=== PATIENT | male | born 1995 | race Caucasian/White ===

== ENCOUNTER 2017-03-23 15:17 | Emergency (ER) | payer OTHER ==
[2017-03-23 15:30] VITALS: BP 104/65; PULSE 101; TEMP 98.9; BMI 21.7
[2017-03-23] MEDS ORDERED: IBUPROFEN 600 MG TABLET (FP) PO STA (15:45)
[2017-03-23] MEDS ORDERED: IBUPROFEN 600 MG TABLET (FP) PO ONE (15:55)
--- NOTE | 2017-03-23 16:18 | PDOC ---
History of Present Illness - General Chief Complaint: Sore Throat Stated Complaint: SORETHROAT Time Seen by Provider: 03/23/17 15:43 History Source: Patient Exam Limitations: No Limitations - History of Present Illness Initial Comments: 03/23/17 16:15 21 yr male with sore throat for 3 days no fever or chills. Past History - Past Medical History Allergies/Adverse Reactions: Allergies Allergy/AdvReac Type Severity Reaction Status Date / Time No Known Allergies Allergy Verified 03/23/17 15:27 Home Medications: Ambulatory Orders No Home Medications 0 dose .ROUTE UTDICT 10/27/12 - Immunization History Immunization Up to Date: Yes - Suicide/Smoking/Psychosocial Hx Smoking Status: No Smoking History: Never smoked Number of Cigarettes Smoked Daily: 0 Review of Systems - Review of Systems Able to Perform ROS?: Yes Is the patient limited Lithuanian proficient: No Constitutional: No: Symptoms Reported HEENTM: Yes: See HPI *Physical Exam - Vital Signs Last Vital Signs Temp Pulse Resp BP Pulse Ox 98.9 F 101 H 18 104/65 99 03/23/17 15:27 03/23/17 15:27 03/23/17 15:27 03/23/17 15:27 03/23/17 15:27 - Physical Exam General Appearance: Yes: Nourished, Appropriately Dressed HEENT: positive: EOMI, ЕКАТЕИРНА, Tonsillar Erythema Neck: positive: Supple. negative: Lymphadenopathy (R), Lymphadenopathy (L) Respiratory/Chest: positive: Lungs Clear, Normal Breath Sounds Cardiovascular: positive: Regular Rhythm, Regular Rate Gastrointestinal/Abdominal: positive: Normal Bowel Sounds, Soft Musculoskeletal: positive: Normal Inspection Extremity: positive: Normal Capillary Refill, Normal Inspection, Normal Range of Motion Integumentary: positive: Normal Color, Dry, Warm Neurologic: positive: chief scientific officer II-XII NML intact, Fully Oriented, Alert, Normal Mood/ Affect, Motor Strength 10/25 ED Treatment Course - ADDITIONAL ORDERS Additional order review: 03/23/17 15:45 Group A Strep Rapid Antigen - Final Throat - Medications Given in the ED: ED Medications Discontinued Medications Generic Name Dose Route Start Last Admin Trade Name Freq PRN Reason Stop Dose Admin Ibuprofen 600 mg 03/23/17 15:45 03/23/17 15:56 Motrin - PO 03/23/17 15:46 600 mg ONCE STA Administration Medical Decision Making - Medical Decision Making 03/23/17 16:16 cc: sore throat non toxic stable vitals will check for strep *DC/Admit/Observation/Transfer Diagnosis at time of Disposition: Pharyngitis Qualifiers: Pharyngitis/tonsillitis etiology: unspecified etiology Qualified Code(s): J02.9 - Acute pharyngitis, unspecified; J02.9 - Acute pharyngitis, unspecified - Discharge Dispostion Disposition: HOME Condition at time of disposition: Good - Referrals Referrals: Piotr Lindo [Primary Care Provider] - Angel Lopez MD [Staff Physician] - - Patient Instructions Additional Instructions: garlge with warm salt water 4-5 times a day take motrin 600mg every 6hrs for pain(over the counter advil, ibuprofen or motrin) follow with the ENT doctor this week if not improving
== END 2017-03-23 16:21 | disposition home or self-care (01) ==
LOC: JER 15:17 → JERFT 15:17
DX: J02.9 Acute pharyngitis, unspecified (principal)
CPT/HCPCS: 87070; 87430; 99281-25

== ENCOUNTER 2017-08-07 03:06 | Emergency (ER) | payer SELFPAY ==
[2017-08-07 03:57] VITALS: BMI 21.7
--- NOTE | 2017-08-07 04:12 | PDOC ---
History of Present Illness - General History Source: Patient Exam Limitations: No Limitations - History of Present Illness Initial Comments: 08/07/17 04:15 The patient is a 22 year old male, with no significant past medical history, who presents to the emergency department with fever (Tmax 102F), generalized weakness and body aches for about 2 days. The patient states his friend has the flu. The patient denies chest pain, shortness of breath, headache and dizziness. The patient denies chills, nausea, vomit, diarrhea and constipation. The patient denies dysuria, frequency, urgency and hematuria. Allergies: NKDA <Reshma Thakur - Last Filed: 08/07/17 04:15> - General History Source: Patient <Jared Amador - Last Filed: 08/07/17 06:02> - General Chief Complaint: Cold Symptoms Stated Complaint: SICK/FEVER/WEAK Time Seen by Provider: 08/07/17 04:09 Past History <Reshma Thakur - Last Filed: 08/07/17 04:15> - Immunization History Immunization Up to Date: Yes - Suicide/Smoking/Psychosocial Hx Smoking Status: No Smoking History: Never smoked Have you smoked in the past 12 months: No Number of Cigarettes Smoked Daily: 0 Information on smoking cessation initiated: No Hx Alcohol Use: No Drug/Substance Use Hx: No <Jared Amador - Last Filed: 08/07/17 06:02> - Past Medical History Allergies/Adverse Reactions: Allergies Allergy/AdvReac Type Severity Reaction Status Date / Time No Known Allergies Allergy Verified 08/07/17 03:53 Home Medications: Ambulatory Orders Ibuprofen [Motrin] 600 mg PO TID #30 tablet 08/07/17 Oseltamivir Phosphate [Tamiflu -] 75 mg PO BID #10 capsule 08/07/17 Review of Systems - Review of Systems Able to Perform ROS?: Yes Comments:: 08/07/17 04:15 CONSTITUTIONAL: (+) fever, generalized weakness, malaise, Absent:chills, diaphoresis, loss of appetite HEENT: Absent: rhinorrhea, nasal congestion, throat pain, throat swelling, difficulty swallowing, mouth swelling, ear pain, eye pain, visual Changes CARDIOVASCULAR: Absent: chest pain, syncope, palpitations, irregular heart rate, lightheadedness , peripheral edema RESPIRATORY: Absent: cough, shortness of breath, dyspnea with exertion, orthopnea, wheezing, stridor, hemoptysis GASTROINTESTINAL: Absent: abdominal pain, abdominal distension, nausea, vomiting, diarrhea, constipation, melena, hematochezia GENITOURINARY: Absent: dysuria, frequency, urgency, hesitancy, hematuria, flank pain, genital pain MUSCULOSKELETAL: (+) diffuse body aches. Absent: arthralgia, joint swelling SKIN: Absent: rash, itching, pallor HEMATOLOGIC/IMMUNOLOGIC: Absent: easy bleeding, easy bruising, lymphadenopathy, frequent infections ENDOCRINE: Absent: unexplained weight gain, unexplained weight loss, heat intolerance, cold intolerance NEUROLOGIC: Absent: headache, focal weakness or paresthesias, dizziness, unsteady gait, seizure, mental status changes, bladder or bowel incontinence PSYCHIATRIC: Absent: anxiety, depression, suicidal or homicidal ideation, hallucinations. <Reshma Thakur - Last Filed: 08/07/17 04:15> *Physical Exam - Vital Signs Last Vital Signs Temp Pulse Resp BP Pulse Ox 102.7 F H 130 H 14 107/57 97 08/07/17 03:54 08/07/17 03:54 08/07/17 03:54 08/07/17 03:54 08/07/17 03:54 - Physical Exam Comments: 08/07/17 04:16 GENERAL: (+) in moderate distress. Well developed, well nourished. Awake and alert. HEENT: Normocephalic, atraumatic. PERRLA, EOMI. No conjunctival pallor. Sclera are non- icteric. Moist mucous membranes. Oropharynx is clear. NECK: Supple. Full ROM. No JVD. Carotid pulses 2+ and symmetric, without bruits. No thyromegaly. No lymphadenopathy. CARDIOVASCULAR: Regular rate and rhythm. No murmurs, rubs, or gallops. Distal pulses are 2+ and symmetric. PULMONARY: No evidence of respiratory distress. Lungs clear to auscultation bilaterally. No wheezing, rales or rhonchi. ABDOMINAL: Soft. Non-tender. Non-distended. No rebound or guarding. No organomegaly. Normoactive bowel sounds. MUSCULOSKELETAL Normal range of motion at all joints. No bony deformities or tenderness. No CVA tenderness. EXTREMITIES: No cyanosis. No clubbing. No edema. No calf tenderness. SKIN: Warm and dry. Normal capillary refill. No rashes. No jaundice. NEUROLOGICAL: Alert, awake, appropriate. Cranial nerves 2-12 intact. Normoreflexic in the upper and lower extremities. Normal speech. Toes are down-going bilaterally. Gait is normal without ataxia. PSYCHIATRIC: Cooperative. Good eye contact. Appropriate mood and affect. <Reshma Thakur - Last Filed: 08/07/17 04:15> - Vital Signs Last Vital Signs Temp Pulse Resp BP Pulse Ox 102.7 F H 130 H 14 107/57 97 08/07/17 03:54 08/07/17 03:54 08/07/17 03:54 08/07/17 03:54 08/07/17 03:54 <Jared Amador - Last Filed: 08/07/17 06:02> ED Treatment Course - LABORATORY CBC & Chemistry Diagram: 08/07/17 04:42 08/07/17 04:42 <Jared Amador - Last Filed: 08/07/17 06:02> Medical Decision Making - Medical Decision Making 08/07/17 06:00 Dr. Amador: The scribe's documentation has been prepared under my direction and personally reviewed by me in its entirery. I confirm that the note above accurately reflects all work, treatment, procedures, and medical decision making performed by me. 08/07/17 06:01 Pt feels better after IVF, tamiflu and tylenol. Pt will be discharged. Will treat clinically for influenza as was can not test for flu at this time. <Jared Amador - Last Filed: 08/07/17 06:02> *DC/Admit/Observation/Transfer - Attestations Scribe Attestion: 08/07/17 04:16 Documentation prepared by Reshma Thakur, acting as back office medical assistant for Jared Amador DO <Reshma Thakur - Last Filed: 08/07/17 04:15> - Discharge Dispostion Admit: No <Jared Amador - Last Filed: 08/07/17 06:02> Diagnosis at time of Disposition: Influenza - Discharge Dispostion Disposition: HOME Condition at time of disposition: Stable - Prescriptions Prescriptions: Ibuprofen [Motrin] 600 mg PO TID #30 tablet Oseltamivir Phosphate [Tamiflu -] 75 mg PO BID #10 capsule - Patient Instructions Printed Discharge Instructions: DI for Influenza -- Adult Additional Instructions: take all medication as directed. Follow up with your doctor after Tamiflu is complete. Drink plenty of fluids, have plenty of bed rest until you are completely resolved of the flu.
[2017-08-07] MEDS ORDERED: OSELTAMIVIR PHOSPHATE 75 MG CAPSULE PO ONE (04:13)
[2017-08-07] MEDS ORDERED: SODIUM CHLORIDE 1,000 ML IV STA ×2 (04:13)
[2017-08-07] MEDS ORDERED: ACETAMINOPHEN 325 MG TABLET (FP) PO ONE (04:13)
[2017-08-07] MEDS ORDERED: ACETAMINOPHEN 325 MG TABLET (FP) ONE (04:31)
[2017-08-07] MEDS ORDERED: OSELTAMIVIR PHOSPHATE 75 MG CAPSULE ONE (04:31)
[2017-08-07 04:50] LABS: BASO % 0.2 % (0-2.0); EOS % 0.4 % (0-4.5); HEMATOCRIT 45.6 % (35.4-49); HEMOGLOBIN 15.6 GM/dL (11.7-16.9); LYMPH % 8.1 % (8-40); MCH 30.5 pg (25.7-33.7); MCHC 34.2 g/dl (32.0-35.9); MEAN CELL VOLUME 89.2 fl (80-96); MEAN PLT VOLUME 8.4 fl (7.5-11.1); MONO % 10.9 % (3.8-10.2); NEUT % 80.4 % (42.8-82.8); PLATELET COUNT 173 K/MM3 (134-434); RBC 5.11 M/mm3 (4.00-5.60); RDW 12.3 % (11.9-15.9); WHITE BLOOD COUNT 6.2 K/mm3 (4.0-10.0)
[2017-08-07 05:13] LABS: ALBUMIN 4.7 g/dl (3.4-5.0); ALK PHOS 132 U/L (45-117); ANION GAP 8 (8-16); BILIRUBIN,TOTAL 0.8 mg/dL (0.2-1.0); BLOOD UREA NITROGEN 10 mg/dL (7-18); CALCIUM 8.7 mg/dL (8.5-10.1); CHLORIDE 103 mmol/L (98-107); CO2 27 mmol/L (21-32); CREATININE 1.1 mg/dL (0.7-1.3); GLUCOSE,RANDOM 87 mg/dL (74-106); SGOT/AST 15 U/L (15-37); SGPT/ALT 28 U/L (12-78); SODIUM 138 mmol/L (136-145); TOT PROT 7.6 g/dl (6.4-8.2)
[2017-08-07 06:59] VITALS: BP 107/60; PULSE 118; TEMP 99.6
== END 2017-08-07 07:00 | disposition home or self-care (01) ==
LOC: JER 03:06
DX: J11.1 Influenza due to unidentified influenza virus with other respiratory manifestations (principal)
CPT/HCPCS: 36415; 80053; 85025; 99281-25

== ENCOUNTER 2018-04-26 01:50 | Emergency (ER) | payer SELFPAY ==
[2018-04-26] MEDS ORDERED: NAPROXEN 500 MG TABLET (FP) PO ONE (02:10)
[2018-04-26 03:05] VITALS: BP 121/51; PULSE 81; TEMP 98.8; BMI 21.7
--- NOTE | 2018-04-26 03:14 | PDOC ---
Attending Attestation - Resident Resident Name: OtiliomarlyFelix - ED Attending Attestation I have performed the following: I have examined & evaluated the patient, The case was reviewed & discussed with the resident, I agree w/resident's findings & plan - HPI HPI: 04/26/18 04:27 Pt comes with minimal pain at the left shoulder after boxing. Pain with adduction - Physicial Exam PE: 04/26/18 04:27 Agree with resident exam - Medical Decision Making 04/26/18 04:27 Home with NSAIDS; follow with ortho as needed, Pt doesn't require cast or sling. shoulder XR is normal.
--- NOTE | 2018-04-26 04:22 | PDOC ---
History of Present Illness - General Chief Complaint: Pain, Acute Stated Complaint: LRFT SHOULDER PAIN Time Seen by Provider: 04/26/18 01:48 EST History Source: Patient Exam Limitations: No Limitations - History of Present Illness Initial Comments: 04/26/18 04:18 The patient is a 22M with no PMH who presents with shoulder pain. The patient states that he was boxing tonight against a punching bag and felt pain 2 hours after. He describes a dull pain that is worse with certain movements (abduction) . He denies any numbness, tingling, or weakness in his shoulder or arm. Past History - Past Medical History Allergies/Adverse Reactions: Allergies Allergy/AdvReac Type Severity Reaction Status Date / Time No Known Allergies Allergy Verified 04/26/18 01:39 EST Home Medications: Ambulatory Orders Ibuprofen [Motrin] 600 mg PO TID #30 tablet 08/07/17 - Immunization History Immunization Up to Date: Yes - Suicide/Smoking/Psychosocial Hx Smoking Status: No Smoking History: Never smoked Have you smoked in the past 12 months: No Number of Cigarettes Smoked Daily: 0 Information on smoking cessation initiated: No Hx Alcohol Use: No Drug/Substance Use Hx: No Review of Systems - Review of Systems Able to Perform ROS?: Yes Comments:: 04/26/18 04:19 GENERAL/CONSTITUTIONAL: No fever or chills. No weakness. MUSCULOSKELETAL: Positive for L shoulder pain. No neck or back pain. SKIN: No rash or lesions. NEUROLOGIC: No headache, numbness, tingling, focal weakness, loss of consciousness, or change in strength/sensation. Is the patient limited Occitan proficient: No *Physical Exam - Vital Signs Last Vital Signs Temp Pulse Resp BP Pulse Ox 98.8 F 81 18 121/51 L 99 04/26/18 01:39 EST 04/26/18 01:39 EST 04/26/18 01:39 EST 04/26/18 01:39 EST 04/26/18 01:39 EST - Physical Exam General Appearance: Yes: Nourished, Appropriately Dressed. No: Apparent Distress HEENT: positive: Normal Voice, Hearing Grossly Normal Musculoskeletal: positive: Decreased Range of Motion (in R shoulder), Other ( TTP over posterior aspect of L lateral shoulder) Neurologic: positive: Other (Neurovascularly intact in b/l upper extremities) ED Treatment Course - RADIOLOGY Radiology Studies Ordered: Category Date Time Status SHOULDER-LEFT [RAD] Stat Radiology 04/26/18 02:09 Taken - Medications Given in the ED: ED Medications Discontinued Medications Generic Name Dose Route Start Last Admin Trade Name Tess PRN Reason Stop Dose Admin Naproxen 500 mg 04/26/18 02:10 04/26/18 02:55 Naprosyn - PO 04/26/18 02:11 500 mg ONCE ONE Administration Medical Decision Making - Medical Decision Making 04/26/18 04:21 The patient is a 22M with no PMH who presents with shoulder pain. Given 500 naprosyn. XR negative on preliminary read. Pt states he feels better. Pain is likely MSK. Will d/c with PCP f/u. *DC/Admit/Observation/Transfer Diagnosis at time of Disposition: Shoulder pain Qualifiers: Chronicity: acute Laterality: left Qualified Code(s): M25.512 - Pain in left shoulder - Discharge Dispostion Disposition: HOME Condition at time of disposition: Stable Decision to Admit order: No - Referrals - Patient Instructions Printed Discharge Instructions: DI for Shoulder Pain Additional Instructions: Please follow up with your primary care physician in 2-3 days. Take tylenol or motrin as needed for pain. Return to the ER if you have any numbness, tingling, or weakness in your shoulder or arm. Please return to the ER if symptoms persist, worsen, or new symptoms arise. - Post Discharge Activity
== END 2018-04-26 04:31 | disposition home or self-care (01) ==
LOC: JER 01:50
DX: M25.512 Pain in left shoulder (principal); X50.9XXA Other and unspecified overexertion or strenuous movements or postures, initial encounter; Y93.59 Activity, other involving other sports and athletics played individually; Y92.89 Other specified places as the place of occurrence of the external cause; Y99.8 Other external cause status
CPT/HCPCS: 73030-TC-LT-FY; 99281-25

== ENCOUNTER 2019-04-14 21:08 | Emergency (ER) | payer OTHER ==
[2019-04-14 21:24] VITALS: BP 113/76; PULSE 103; TEMP 99.6; BMI 25.0
--- NOTE | 2019-04-14 22:06 | PDOC ---
Documentation entered by Sigifredo Nava SCRIBE, acting as scribe for Rowan Varghese MD. Rowan Varghese MD: This documentation has been prepared by the Elijah grey Aiswarya, SCRIBE, under my direction and personally reviewed by me in its entirety. I confirm that the documentation accurately reflects all work, treatment, procedures, and medical decision making performed by me. History of Present Illness - General Chief Complaint: Sore Throat Stated Complaint: SORE THRAOT Time Seen by Provider: 04/14/19 21:20 History Source: Patient Exam Limitations: No Limitations - History of Present Illness Initial Comments: 04/14/19 21:28 Assessment and plan: This is 23-year-old male who comes in complaining of fever and sore throat x1 day. Patient said he had some nausea and vomited x1 this morning but otherwise has been able to tolerate liquids throughout the day. Patient has a low-grade temp of 99.6 here in the ED. On my exam there was some bilateral lymphadenopathy as well as some erythema the posterior pharynx but no exudate. Patient had rapid strep sent 04/14/19 22:05 Rapid strep was negative. Patient was reassured that this is most likely viral. Patient told to take Tylenol or Motrin for fevers and follow-up with his primary care doctor. 04/14/19 22:07 The patient is a 23 year old male, with no significant PMH, who presents to the emergency department with flu-like symptoms for 1 day. The patient states he endorses associated symptoms of throat pain, abdomen pain, 1 episode of vomiting and decreased appetite. The patient denies chest pain, shortness of breath, headache and dizziness.Denies fever, chills, nausea, diarrhea and constipation. Denies dysuria, frequency, urgency and hematuria. PAST MEDICAL HISTORY: no significant history PAST SURGICAL HISTORY: no significant history FAMILY HISTORY: no pertinent history SOCIAL HISTORY: Pt lives with family and is employed. MEDICATIONS: reviewed ALLERGIES: As per nursing notes Adult ROS General: No fevers or chills, no weakness, no weight loss HEENT: No change in vision. +sore throat. . No ear pain CardioVascular: No chest pain or shortness of breath Respiratory:No cough, or wheezing. Gastrointestinal: +vomiting. +abdomen pain. no nausea, diarrhea or constipation , No rectal bleeding Genitourinary: No dysuria, hematuria, or frequency Musculoskeletal: No joint or muscle pain or swelling Neurologic: No headache, vertigo, dizziness or loss of consciousness Psychiatric: nor depression Skin: No rashes or easy bruising Endocrine: no increased thirst or abnormal weight change Allergic: no skin or latex allergy All other systems reviewed and normal Adult Exam: General: Well-nourished well-developed individual, no acute distress HEENT: Throat:+oral pharynx edematous and erythematous tonsils. Neck: +bilateral lymphadenopathy. Eyes::Pupils equal reactive and round, extraocular motion intact Chest: Nontender to palpation Cardiac: S1-S2 normal, regular rate and rhythm, no murmurs rubs or gallops Respiratory: Lungs clear to auscultation bilateral Abdomen: Soft, nondistended, normal bowel sounds, nontender to palpation diffusely Extremities: Warm, dry, no cyanosis, clubbing, or edema Skin: No rashes Neuro: Alert and oriented x3, nonfocal exam, grossly intact, normal gait Psych: Normal mood and affect Past History - Past Medical History Allergies/Adverse Reactions: Allergies Allergy/AdvReac Type Severity Reaction Status Date / Time No Known Allergies Allergy Verified 04/26/18 01:39 EST Home Medications: Ambulatory Orders Ibuprofen [Motrin] 600 mg PO TID #30 tablet 08/07/17 Naproxen [Naprosyn -] 500 mg PO BID #14 tablet 04/26/18 COPD: No - Immunization History Immunization Up to Date: Yes - Psycho Social/Smoking Cessation Hx Smoking Status: No Smoking History: Unknown if ever smoked Have you smoked in the past 12 months: No Number of Cigarettes Smoked Daily: 0 Information on smoking cessation initiated: No Hx Alcohol Use: No Drug/Substance Use Hx: No *Physical Exam - Vital Signs Last Vital Signs Temp Pulse Resp BP Pulse Ox 99.6 F 103 H 14 113/76 99 04/14/19 21:11 04/14/19 21:11 04/14/19 21:11 04/14/19 21:11 04/14/19 21:11 Discharge - Discharge Information Problems reviewed: Yes Clinical Impression/Diagnosis: Viral pharyngitis Condition: Good Disposition: HOME - Admission No - Follow up/Referral - Patient Discharge Instructions Additional Instructions: Your rapid strep was negative for strep infection. Your sore throat and symptoms are most likely secondary to a viral illness which will run its course. Take Tylenol or Motrin as needed for pain or fevers. Stay well-hydrated. Return to the emergency department immediately with ANY new, persistent or worsening symptoms. Continue any medications as previously prescribed by your physician. You should follow up with your primary doctor as soon as possible regarding today's emergency department visit. . Please make sure your doctor reviews the results of your emergency evaluation. Thank you for coming to the Emergency Department today for your care. It was a pleasure to see you today. Please note that your evaluation is INCOMPLETE until you follow-up with your doctor. - Post Discharge Activity
== END 2019-04-14 22:16 | disposition home or self-care (01) ==
LOC: FER 21:08
DX: J02.8 Acute pharyngitis due to other specified organisms (principal); B97.89 Other viral agents as the cause of diseases classified elsewhere
CPT/HCPCS: 87070; 87880; 99282-25